=== PATIENT | male | born 1955 | race Caucasian/White ===

== ENCOUNTER 2016-10-27 07:45 | Emergency (ER) | payer BC ==
[~2016-10-27] VITALS: Ht 182.9 cm; Wt 83.0 kg
[~2016-10-27 07:45] MED LIST: AMLO5TAB22 PO; ASPI81TA82 PO; CIAL5TAB PO; LISI-363 PO
[2016-10-27 07:47] VITALS: BP 167/104; PULSE 83; RESP 16; TEMP 98.2; O2SAT 98
[2016-10-27] MEDS ORDERED: LISI-515 PO ×2 (08:05→08:17)
[2016-10-27] MEDS ORDERED: AMLO5TAB2 PO (08:05)
[2016-10-27] MEDS ORDERED: ASPI-110 PO (08:05)
--- NOTE | 2016-10-27 08:14 | PD ---
HPI Chief Complaint: Hypertension Time Seen by Provider: 08:05 Travel History International Travel<30 days: No Contact w/Intl Traveler<30days: No Traveled to known affect area: No History of Present Illness HPI ITS A HOLIDAY WEEKEND, NOTED THAT HE RAN OUT OF HIS LISINOPRIL 20MG DAILY, PATIENT DENIES ANY ACTUAL SYMPTOMS CP/HARMON/SOB/N/V/D/ABD PAIN. PATIENT HAS FOLLOWUP WITH DR QUINONES THIS WEEK [facility] Past Medical History Hx Anticoagulant Therapy: Yes (BABY ASA DAILY) Cancer: Yes (prostrate: radiation & hormone therapy) Cardiovascular Problems: Yes (HTN) Diabetes: No Diminished Hearing: No Hypertension: Yes Immunizations Current: Yes ("shingles shot") Tetanus Vaccination: < 5 Years Influenza Vaccination: No Past Surgical History Genitourinary Surgery: Yes (radical prostrate) Social History Alcohol Use: Yes (beer daily) Tobacco Use: No Substance Use: No Allergies-Medications (Allergen,Severity, Reaction): Coded Allergies: No Known Allergies (Unverified , 10/27/16) Reported Meds & Prescriptions Reported Meds & Active Scripts Active Reported Amlodipine (Amlodipine Besylate) 5 Mg Tab 5 Mg PO BID Aspirin 81 (Aspirin) 81 Mg Tabdr 81 Mg PO DAILY Lisinopril 20 Mg Tab 20 Mg PO DAILY Review of Systems Except as stated in HPI: all other systems reviewed are Neg Physical Exam Narrative GENERAL: SKIN: Warm and dry. HEAD: Atraumatic. Normocephalic. EYES: Pupils equal and round. No scleral icterus. No injection or drainage. ENT: No nasal bleeding or discharge. Mucous membranes pink and moist. NECK: Trachea midline. No JVD. CARDIOVASCULAR: Regular rate and rhythm. RESPIRATORY: No accessory muscle use. Clear to auscultation. Breath sounds equal bilaterally. GASTROINTESTINAL: Abdomen soft, non-tender, nondistended. Hepatic and splenic margins not palpable. MUSCULOSKELETAL: Extremities without clubbing, cyanosis, or edema. No obvious deformities. NEUROLOGICAL: Awake and alert. No obvious cranial nerve deficits. Motor grossly within normal limits. Five out of 5 muscle strength in the arms and legs. Normal speech. PSYCHIATRIC: Appropriate mood and affect; insight and judgment normal. Data Data Last Documented VS Vital Signs Date Time Temp Pulse Resp B/P Pulse Ox O2 Delivery O2 Flow Rate FiO2 10/27/16 08:00 83 16 10/27/16 07:47 98.2 167/104 98 MDM Medical Decision Making Medical Screen Exam Complete: Yes Emergency Medical Condition: Yes Medical Record Reviewed: Yes Differential Diagnosis MED REFILL Narrative Course MED REFILL (HOWEVER, FOUND PT BP 190/105) SO WILL GIVE PO MEDS TO DECREASE BP. WILL PROVIDE MEDS PO AND OBSERVED TO CONTROL BP, IF OBSERVABLE DECREASED THEN OK TO D/C HOME AND ADVISED PATIENT TO FILL HIS TEMPORARY RX AND TAKE MEDICATIONS CARLYN SCHEDULED. Diagnosis Primary Impression: MEDICATION REFILL Additional Impression: UNCONTROLLED HTN (DUE TO OUT OF PRESCRIPTION) Scripts Lisinopril 20 Mg Tab20 Mg PO DAILY #30 TAB Ref 0 Prov:Lazaro Lozano MD 10/27/16 Disposition: 01 DISCHARGE HOME Condition: Stable Lazaro Lozano MD Oct 27, 2016 08:14
[2016-10-27] MEDS ORDERED: LISINOPRIL 10 MG TAB PO ONE (08:15)
[2016-10-27] MEDS ORDERED: cloNIDine HCL 0.2 MG TAB PO ONE (08:15)
[2016-10-27 08:48] VITALS: BP 156/96
== END 2016-10-27 08:55 | disposition home or self-care (01) ==
LOC: PHED 07:45
DX: Z76.0 Encounter for issue of repeat prescription (principal); I10 Essential (primary) hypertension; Z79.82 Long term (current) use of aspirin
CPT/HCPCS: 99283

== ENCOUNTER 2017-04-06 20:34 | Emergency (ER) | payer BC ==
[~2017-04-06] VITALS: Ht 182.9 cm; Wt 86.7 kg
[~2017-04-06 20:34] MED LIST changes: +AMLO5TAB2 PO; -AMLO5TAB22 PO; +ASPI1TAB57 PO; -ASPI81TA82 PO; -CIAL5TAB PO; -LISI-363 PO; +LISI-515 PO
[2017-04-06 20:43] VITALS: BP 205/110; PULSE 106; RESP 18; O2SAT 96
[2017-04-06 20:53] VITALS: O2SAT 97
--- NOTE | 2017-04-06 20:56 | PD ---
HPI Chief Complaint: Chest Pain Time Seen by Provider: 20:40 Travel History International Travel<30 days: No Contact w/Intl Traveler<30days: No Traveled to known affect area: No History of Present Illness HPI 61-year-old male complains of chest pain. Patient states that the pain started this morning when he woke up. Patient states the pain is sharp pain substernal with radiation to the jaw and the ears. Patient states that the pain is worse with deep breathing. Patient denies any coughing congestion fever chills. Patient states that he has intermittent palpitation. Patient denies any diaphoresis. Patient denies any nausea vomiting. Patient denies history of CAD. Patient has history of hypertension. Patient denies any history diabetes or hyperlipidemia. Patient is a nonsmoker. Patient denies family history of heart disease. Patient has history of prostate cancer status post surgery radiation and hormone therapy in the past. On a scale of 1-10 the pain is a 6. PFSH Past Medical History Hx Anticoagulant Therapy: Yes (BABY ASA DAILY) Cancer: Yes (prostrate: radiation & hormone therapy) Cardiovascular Problems: Yes (HTN) Diabetes: No Diminished Hearing: No Hypertension: Yes Immunizations Current: Yes ("shingles shot") Tetanus Vaccination: < 5 Years Influenza Vaccination: No Past Surgical History Genitourinary Surgery: Yes (radical prostrate) Other Surgery: Yes (back sx L4 L5; prostate 2014) Social History Alcohol Use: Yes (4 beers a day ) Tobacco Use: No (23 years ago quit) Substance Use: No Allergies-Medications (Allergen,Severity, Reaction): Coded Allergies: No Known Allergies (Unverified Adverse Reaction, Unknown, 04/06/17) Reported Meds & Prescriptions Reported Meds & Active Scripts Active Reported Amlodipine (Amlodipine Besylate) 5 Mg Tab 5 Mg PO BID Aspirin 81 (Aspirin) 81 Mg Tabdr 81 Mg PO DAILY Lisinopril 20 Mg Tab 20 Mg PO DAILY Review of Systems General / Constitutional: No: Fever Eyes: No: Visual changes HENT: No: Headaches Cardiovascular: Positive: Chest Pain or Discomfort Respiratory: No: Shortness of Breath Gastrointestinal: No: Abdominal Pain Genitourinary: No: Dysuria Musculoskeletal: No: Pain Skin: No Rash Neurologic: No: Weakness Psychiatric: No: Depression Endocrine: No: Polydipsia Hematologic/Lymphatic: No: Easy Bruising Physical Exam Narrative GENERAL: Well-nourished, well-developed patient. SKIN: Focused skin assessment warm/dry. HEAD: Normocephalic. EYES: No scleral icterus. No injection or drainage. NECK: Supple, trachea midline. No JVD or lymphadenopathy. CARDIOVASCULAR: Regular rate and rhythm without murmurs, gallops, or rubs. RESPIRATORY: Breath sounds equal bilaterally. No accessory muscle use. GASTROINTESTINAL: Abdomen soft, non-tender, nondistended. MUSCULOSKELETAL: No cyanosis, or edema. BACK: Nontender without obvious deformity. No CVA tenderness. Neurologic exam normal. Data Data Last Documented VS Vital Signs Date Time Temp Pulse Resp B/P (MAP) Pulse Ox O2 Delivery O2 Flow Rate FiO2 04/06/17 22:41 94 148/91 (110) 04/06/17 21:32 98.2 18 96 Room Air Orders Orders Electrocardiogram (04/06/17 20:49) Complete Blood Count With Diff (04/06/17 20:49) Comprehensive Metabolic Panel (04/06/17 20:49) Creatine Kinase (Cpk) (04/06/17 20:49) Troponin I (04/06/17 20:49) Prothrombin Time / Inr (Pt) (04/06/17 20:49) Act Partial Throm Time (Ptt) (04/06/17 20:49) D-Dimer (04/06/17 20:49) Chest, Single Ap (04/06/17 20:49) Iv Access Insert/Monitor (04/06/17 20:49) Ecg Monitoring (04/06/17 20:49) Oximetry (04/06/17 20:49) Ct Pulmonary Angiogram (04/06/17 20:49) Morphine Inj (Morphine Inj) (04/06/17 21:00) Ondansetron Inj (Zofran Inj) (04/06/17 21:00) Sodium Chlor 0.9% 1000 Ml Inj (Ns 1000 M (04/06/17 21:00) Iohexol 350 Inj (Omnipaque 350 Inj) (04/06/17 21:59) Labetalol Inj (Trandate Inj) (04/06/17 22:15) Labs Laboratory Tests Test 04/06/17 20:40 White Blood Count 7.4 TH/MM3 Red Blood Count 4.59 MIL/MM3 Hemoglobin 14.9 GM/DL Hematocrit 44.1 % Mean Corpuscular Volume 96.2 FL Mean Corpuscular Hemoglobin 32.5 PG Mean Corpuscular Hemoglobin Concent 33.8 % Red Cell Distribution Width 12.6 % Platelet Count 193 TH/MM3 Mean Platelet Volume 8.4 FL Neutrophils (%) (Auto) 81.3 % Lymphocytes (%) (Auto) 8.2 % Monocytes (%) (Auto) 9.2 % Eosinophils (%) (Auto) 0.9 % Basophils (%) (Auto) 0.4 % Neutrophils # (Auto) 6.0 TH/MM3 Lymphocytes # (Auto) 0.6 TH/MM3 Monocytes # (Auto) 0.7 TH/MM3 Eosinophils # (Auto) 0.1 TH/MM3 Basophils # (Auto) 0.0 TH/MM3 CBC Comment DIFF FINAL Differential Comment Prothrombin Time 10.2 SEC Prothromb Time International Ratio 1.0 RATIO Activated Partial Thromboplast Time 26.8 SEC D-Dimer Quantitative (PE/DVT) 0.46 MG/L FEU Blood Urea Nitrogen 9 MG/DL Creatinine 0.70 MG/DL Random Glucose 117 MG/DL Total Protein 8.6 GM/DL Albumin 4.4 GM/DL Calcium Level 8.9 MG/DL Alkaline Phosphatase 72 U/L Aspartate Amino Transf (AST/SGOT) 23 U/L Alanine Aminotransferase (ALT/SGPT) 42 U/L Total Bilirubin 0.6 MG/DL Sodium Level 130 MEQ/L Potassium Level 3.6 MEQ/L Chloride Level 97 MEQ/L Carbon Dioxide Level 24.0 MEQ/L Anion Gap 9 MEQ/L Estimat Glomerular Filtration Rate 114 ML/MIN Total Creatine Kinase 140 U/L Troponin I LESS THAN 0.02 NG/ML MDM Medical Decision Making Medical Screen Exam Complete: Yes Emergency Medical Condition: Yes Interpretation(s) 21:38 PM. CBC within normal limit. Sodium 130. Cardiac enzymes are normal. D -dimer is normal. 22:46 PM. Last Impressions Chest X-Ray 04/06/172048 Signed Impressions: Service Date/Time: Thursday, April 06, 2017 21:19 - CONCLUSION: No acute disease. En Balderas MD CT Angiography 04/06/172048 Signed Impressions: Service Date/Time: Thursday, April 06, 2017 21:41 - CONCLUSION: 1. Negative for pulmonary embolism. Dependent atelectasis in the lungs. Mild fatty liver. En Balderas MD Differential Diagnosis Differential diagnosis including pleurisy, angina, MA, PE, pneumothorax. Narrative Course 61-year-old male with substernal chest pain, sharp pain and worse with deep inspiration. Patient has mild tachycardia and elevated blood pressure. Labetalol 10 mg IV given. Blood pressure came under control. Diagnosis Primary Impression: Atypical chest pain Additional Impression: Uncontrolled hypertension Patient Instructions: General Instructions Additional Instructions: Mobic as needed for pain. Follow-up with personal physician. Return immediately if increasing chest pain shortness of breath. Increased amlodipine to 10 mg daily if persistent elevated blood pressure. Med/Other Pt SpecificInfo: Prescription(s) given Scripts Meloxicam (Mobic) 15 Mg Tab 15 MG PO DAILY for Pain, #14 TAB 0 Refills Prov: Shashank Canales MD 04/06/17 Disposition: 01 DISCHARGE HOME Condition: Stable Shashank Canales MD Apr 06, 2017 20:56
[2017-04-06] MEDS ORDERED: SODIUM CHLOR 0.9% 1000 ML INJ 1,000 ML IV ONE (21:00)
[2017-04-06] MEDS ORDERED: MORPHINE SULFATE 2 MG/ML INJ IV PUSH ONE (21:00)
[2017-04-06] MEDS ORDERED: ONDANSETRON HCL 4 MG/2 ML VIAL IV PUSH ONE (21:00)
[2017-04-06 21:14] LABS: CHLORIDE 97 MEQ/L (98-107); POTASSIUM 3.6 MEQ/L (3.5-5.1); SODIUM (NA) 130 MEQ/L (136-145)
[2017-04-06 21:18] LABS: ANION GAP 9 MEQ/L (5-15); BLOOD UREA NITROGEN 9 MG/DL (7-18)
[2017-04-06 21:21] LABS: ALT (GPT) 42 U/L (12-78); AST (GOT) 23 U/L (15-37); GLOMERULAR FILTRATION RATE 114 ML/MIN (>89)
[2017-04-06 21:22] LABS: TOTAL BILIRUBIN ADULT 0.6 MG/DL (0.2-1.0)
[2017-04-06 21:24] LABS: ALKALINE PHOSPHATASE 72 U/L (45-117); CREATINE KINASE 140 U/L (39-308)
[2017-04-06 21:30] LABS: APTT (PATIENT) 26.8 SEC (24.3-30.1); PROTHROMBIN TIME - PATIENT 10.2 SEC (9.8-11.6)
[2017-04-06 21:32] VITALS: BP 168/96; PULSE 96; RESP 18; TEMP 98.2; O2SAT 96
[2017-04-06 21:36] LABS: BASOPHIL % 0.4 % (0.0-2.0); EOSINOPHIL # 0.1 TH/MM3 (0-0.4); EOSINOPHIL % 0.9 % (0.0-4.0); HEMATOCRIT 44.1 % (39.0-51.0); HEMO FLAGS DIFF FINAL; LYMPH % 8.2 % (9.0-44.0); LYMPHOCYTE # 0.6 TH/MM3 (1.0-4.8); MEAN CELL VOLUME 96.2 FL (80.0-100.0); MEAN CORPUSCULAR HEMOGLOBIN 32.5 PG (27.0-34.0); MEAN CORPUSCULAR HGB CONC 33.8 % (32.0-36.0); MONO % 9.2 % (0.0-8.0); NEUT % 81.3 % (16.0-70.0); PLATELET COUNT 193 TH/MM3 (150-450); RED BLOOD COUNT 4.59 MIL/MM3 (4.50-5.90); RED CELL DISTRIBUTION WIDTH 12.6 % (11.6-17.2); WHITE BLOOD COUNT 7.4 TH/MM3 (4.0-11.0)
--- NOTE | 2017-04-06 21:52 | RADRPT ---
EXAM DATE/TIME: 04/06/2017 21:19 [facility] COMPARISON: No previous studies available for comparison. INDICATIONS : Substernal chest pain. MEDICAL HISTORY : Hypertension. SURGICAL HISTORY : None. ENCOUNTER: Initial ACUITY: 1 day PAIN SCORE: 6/10 LOCATION: chest substernal. FINDINGS: A single view of the chest demonstrates the lungs to be symmetrically aerated without evidence of mas s, infiltrate or effusion. The cardiomediastinal contours are unremarkable. Osseous structures are intact. CONCLUSION: No acute disease. En Balderas MD on April 06, 2017 at 21:50 Board Certified Radiologist. This report was verified electronically.
[2017-04-06] MEDS ORDERED: IOHEXOL 350 MG/ML 10 ML VIAL (for RAD DIAG) IVCONTRAST ONE (21:59)
--- NOTE | 2017-04-06 22:07 | RADRPT ---
EXAM DATE/TIME: 04/06/2017 21:41 [facility] COMPARISON: No previous studies available for comparison. INDICATIONS : Mid chest pain. Evaluate for embolism. IV CONTRAST: 75 cc Omnipaque 350 (iohexol) IV RADIATION DOSE: 15.18 CTDIvol (mGy) MEDICAL HISTORY : Hypertension. Carcinoma, prostate. SURGICAL HISTORY : Prostatectomy. ENCOUNTER: Initial ACUITY: 1 day PAIN SCALE: 6/10 LOCATION: upper chest midline TECHNIQUE: Volumetric scanning of the chest was performed using a pulmonary embolism protocol MIP images were re constructed. Using automated exposure control and adjustment of the mA and/or kV according to patien t size, radiation dose was kept as low as reasonably achievable to obtain optimal diagnostic quality images. DICOM format image data is available electronically for review and comparison. Follow-up recommendations for detected pulmonary nodules are based at a minimum on nodule size and pa tient risk factors according to Fleischner Society Guidelines. FINDINGS: There are no filling defects identified to suggest pulmonary embolus. No hilar, mediastinal axillary adenopathy. Moderate coronary calcifications. Mild dependent atelectasis in the lungs. No pleural or pericardial effusion. No acute findings in the upper abdomen. Fatty liver. CONCLUSION: 1. Negative for pulmonary embolism. Dependent atelectasis in the lungs. Mild fatty liver. En Balderas MD on April 06, 2017 at 22:03 Board Certified Radiologist. This report was verified electronically.
[2017-04-06] MEDS ORDERED: LABETALOL HCL 100 MG/20 ML VIAL IV PUSH ONE (22:15)
[2017-04-06 22:41] VITALS: BP 148/91; PULSE 94
[2017-04-06] MEDS ORDERED: MOBI15TA PO (22:53)
[2017-04-06 23:05] VITALS: BP 144/84; PULSE 92; RESP 18; O2SAT 97
--- NOTE | 2017-04-07 11:38 | EKG ---
Date Performed: 04/06/2017 Time Performed: 20:41:21 PTAGE: 61 years EKG: SINUS TACHYCARDIA ABNORMAL RHYTHM ECG NO PREVIOUS TRACING DOCTOR: Mraek Patel Interpretating Date/Time 04/07/2017 11:36:54
== END 2017-04-06 23:15 | disposition home or self-care (01) ==
LOC: PHED 20:34
DX: R07.89 Other chest pain (principal); I10 Essential (primary) hypertension; Z85.46 Personal history of malignant neoplasm of prostate; Z87.891 Personal history of nicotine dependence
CPT/HCPCS: 71010; 71275; 80053; 82550; 84484; 85025; 85379; 85610; 85730; 93005; 96361; 96374; 96375; 99285; J2270; J2405; J7030; Q9967

== ENCOUNTER 2017-07-05 20:40 | Observation (INO) | payer BC ==
[~2017-07-05] VITALS: Ht 208.3 cm; Wt 83.6 kg
[~2017-07-05 20:40] MED LIST changes: +MOBI15TA PO
[2017-07-05 20:48] VITALS: BP 189/106; PULSE 112; RESP 24; TEMP 98.8; O2SAT 99
--- NOTE | 2017-07-05 21:25 | PD ---
HPI Chief Complaint: Complaint Time Seen by Provider: 21:15 Travel History International Travel<30 days: No Contact w/Intl Traveler<30days: No Traveled to known affect area: No History of Present Illness HPI 61-year-old male patient with history of prostate cancer, with history of radiation, complicated by radiation related cystitis, here because of blood in the urine and passing blood clots, then had difficulty urinating since 3 PM. He states that he is having a lot of lower abdominal discomfort and fullness. He states he could not pass his urine at this point and states that he has had difficulty all day with passing clots. He had talked his primary care physician and was told to come into the hospital for further treatment. Modifying Factors: None Associated Signs & Symptoms: Blood in the urine, passing blood clots in the urine, inability to urinate Risk Factors: Radiation cystitis history PFSH Past Medical History Hx Anticoagulant Therapy: Yes (BABY ASA DAILY) Cancer: Yes (prostrate: radiation & hormone therapy) Cardiovascular Problems: Yes (HTN) Diabetes: No Diminished Hearing: No Hypertension: Yes Immunizations Current: Yes ("shingles shot") Past Surgical History Genitourinary Surgery: Yes (radical prostrate) Other Surgery: Yes (back sx L4 L5; prostate 2014) Social History Alcohol Use: Yes (4 beers a day ) Tobacco Use: No (23 years ago quit) Substance Use: No Allergies-Medications (Allergen,Severity, Reaction): Coded Allergies: No Known Allergies (Unverified Adverse Reaction, Unknown, 07/05/17) Reported Meds & Prescriptions Reported Meds & Active Scripts Active Mobic (Meloxicam) 15 Mg Tab 15 Mg PO DAILY Reported Amlodipine (Amlodipine Besylate) 5 Mg Tab 5 Mg PO BID Aspirin 81 (Aspirin) 81 Mg Tabdr 81 Mg PO DAILY Lisinopril 20 Mg Tab 20 Mg PO DAILY Review of Systems Except as stated in HPI: all other systems reviewed are Neg Physical Exam Narrative GENERAL: Well-developed elderly male patient currently in mild distress. Awake and oriented 3. SKIN: Focused skin assessment warm/dry. HEAD: Atraumatic. Normocephalic. EYES: Pupils equal and round. No scleral icterus. No injection or drainage. ENT: No nasal bleeding or discharge. Mucous membranes pink and moist. NECK: Trachea midline. No JVD. CARDIOVASCULAR: Regular rate and rhythm. No murmur appreciated. RESPIRATORY: No accessory muscle use. Clear to auscultation. Breath sounds equal bilaterally. GASTROINTESTINAL: Abdomen soft, palpable bladder in the lower abdomen, mildly tender to palpation. Hepatic and splenic margins not palpable. MUSCULOSKELETAL: No obvious deformities. No clubbing. No cyanosis. No edema. NEUROLOGICAL: Awake and alert. No obvious cranial nerve deficits. Motor grossly within normal limits. Normal speech. PSYCHIATRIC: Appropriate mood and affect; insight and judgment normal. Data Data Last Documented VS Vital Signs Date Time Temp Pulse Resp B/P (MAP) Pulse Ox O2 Delivery O2 Flow Rate FiO2 07/05/17 23:33 75 18 175/88 (117) 97 Room Air 07/05/17 20:48 98.8 Orders Orders Urinary Catheter Insert/Apply (07/05/17 21:15) Bladder/Catheter Irrigation (07/05/17 21:15) Complete Blood Count With Diff (07/05/17 21:22) Prothrombin Time / Inr (Pt) (07/05/17 21:22) Act Partial Throm Time (Ptt) (07/05/17 21:22) Urinalysis - C+S If Indicated (07/05/17 21:22) Type And Screen (07/05/17 21:22) Consult Urology (07/06/17 ) Admit Order (Ed Use Only) (07/06/17 00:52) Labs Laboratory Tests Test 07/05/17 21:55 White Blood Count 5.4 TH/MM3 Red Blood Count 4.26 MIL/MM3 Hemoglobin 13.8 GM/DL Hematocrit 39.9 % Mean Corpuscular Volume 93.6 FL Mean Corpuscular Hemoglobin 32.3 PG Mean Corpuscular Hemoglobin Concent 34.5 % Red Cell Distribution Width 12.7 % Platelet Count 168 TH/MM3 Mean Platelet Volume 8.1 FL Neutrophils (%) (Auto) 82.6 % Lymphocytes (%) (Auto) 7.8 % Monocytes (%) (Auto) 8.8 % Eosinophils (%) (Auto) 0.7 % Basophils (%) (Auto) 0.1 % Neutrophils # (Auto) 4.5 TH/MM3 Lymphocytes # (Auto) 0.4 TH/MM3 Monocytes # (Auto) 0.5 TH/MM3 Eosinophils # (Auto) 0.0 TH/MM3 Basophils # (Auto) 0.0 TH/MM3 CBC Comment DIFF FINAL Differential Comment Prothrombin Time 10.4 SEC Prothromb Time International Ratio 1.0 RATIO Activated Partial Thromboplast Time 25.2 SEC Urine Collection Type CLEAN CATCH Urine Color RED Urine Turbidity TURBID Urine pH 6.5 Urine Specific Boomer 1.015 Urine Protein 100 mg/dL Urine Glucose (UA) 100 mg/dL Urine Ketones NEG mg/dL Urine Occult Blood MOD Urine Nitrite NEG Urine Bilirubin NEG Urine Urobilinogen 0.2 MG/DL Urine Leukocyte Esterase NEG Urine RBC INNUM /hpf Urine Squamous Epithelial Cells 0-5 /hpf Microscopic Urinalysis Comment CULT NOT INDICATED MDM Medical Decision Making Medical Screen Exam Complete: Yes Emergency Medical Condition: Yes Medical Record Reviewed: Yes Interpretation(s) Laboratory Tests Test 07/05/17 21:55 Red Blood Count 4.26 MIL/MM3 (4.50-5.90) Neutrophils (%) (Auto) 82.6 % (16.0-70.0) Lymphocytes (%) (Auto) 7.8 % (9.0-44.0) Monocytes (%) (Auto) 8.8 % (0.0-8.0) Lymphocytes # (Auto) 0.4 TH/MM3 (1.0-4.8) Urine Color RED (YELLW/STRAW) Urine Protein 100 mg/dL (NEG-TRACE) Urine Glucose (UA) 100 mg/dL (NEG) Urine Occult Blood MOD (NEG) Urine RBC INNUM /hpf (0-3) Differential Diagnosis Hemorrhagic cystitis/urinary outflow obstruction Narrative Course Bladder irrigation was started on the patient and it seems to clear with irrigation. However, the bleeding continues when the irrigation is stopped. Vital signs are stable. H&H stable. The case was discussed with urologist on- call, Dr. Smith, and he would like the patient to be admitted as an observation. Case is discussed with Dr. Blank for admission. Diagnosis Primary Impression: Radiation cystitis Additional Impression: Hematuria Admitting Information Admitting Physician Requests: Admit Christine Jimenez MD Jul 05, 2017 21:25
[2017-07-05 22:14] LABS: AUTOMATED NEUTROPHIL # 4.5 TH/MM3 (1.8-7.7); BASOPHIL % 0.1 % (0.0-2.0); EOSINOPHIL % 0.7 % (0.0-4.0); HEMATOCRIT 39.9 % (39.0-51.0); HEMOGLOBIN 13.8 GM/DL (13.0-17.0); LYMPH % 7.8 % (9.0-44.0); LYMPHOCYTE # 0.4 TH/MM3 (1.0-4.8); MEAN CELL VOLUME 93.6 FL (80.0-100.0); MEAN CORPUSCULAR HEMOGLOBIN 32.3 PG (27.0-34.0); MEAN CORPUSCULAR HGB CONC 34.5 % (32.0-36.0); MEAN PLATELET VOLUME 8.1 FL (7.0-11.0); MONO % 8.8 % (0.0-8.0); MONOCYTE # 0.5 TH/MM3 (0-0.9); NEUT % 82.6 % (16.0-70.0); PLATELET COUNT 168 TH/MM3 (150-450); RED BLOOD COUNT 4.26 MIL/MM3 (4.50-5.90); RED CELL DISTRIBUTION WIDTH 12.7 % (11.6-17.2); WHITE BLOOD COUNT 5.4 TH/MM3 (4.0-11.0)
[2017-07-05 22:27] LABS: PROTHROMBIN TIME - PATIENT 10.4 SEC (9.8-11.6)
[2017-07-05 22:35] LABS: BILIRUBIN, URINE NEG (NEG); BLOOD, URINE MOD (NEG); GLUCOSE,URINE 100 mg/dL (NEG); KETONE, URINE NEG (NEG); NITRITE,URINE NEG (NEG); PH, URINE 6.5 (5.0-8.5); URINE LEUKOCYTE ESTERASE NEG (NEG)
[2017-07-05 22:36] LABS: URINE COLOR RED (YELLW/STRAW)
[2017-07-05 22:41] LABS: RBC, URINE INNUM /hpf (0-3); SQUAMOUS EPITHELIAL CELL URINE 0-5 /hpf (0-5)
[2017-07-05 23:33] VITALS: BP 175/88; PULSE 75; RESP 18; O2SAT 97
[2017-07-06] VITALS (7 sets, daily range): BP systolic 124–175; BP diastolic 78–97; PULSE 77–90; RESP 14–18; TEMP 97.5–98.1; O2SAT 96–97
[2017-07-06] MEDS ORDERED: ONDANSETRON HCL 4 MG/2 ML VIAL IVP PRN (01:00)
[2017-07-06] MEDS ORDERED: NALOXONE HCL 0.4 MG/ML AMP IV PUSH PRN (01:00)
[2017-07-06] MEDS ORDERED: SODIUM CHLORIDE 0.9% FLUSH 10 ML FLUSH IV FLUSH PRN (01:00)
[2017-07-06] MEDS: SODIUM CHLOR 0.9% 1000 ML INJ 1,000 ML IV SCH ×3 (03:20→20:43)
[2017-07-06] MEDS ORDERED: LORazepam 1 MG TAB PO PRN (03:30)
[2017-07-06] MEDS ORDERED: HALOPERIDOL LACTATE 5 MG/ML AMP IM PRN (03:30)
[2017-07-06] MEDS ORDERED: LORazepam 2 MG/ML VIAL IV PUSH PRN ×4 (03:30)
[2017-07-06] MEDS ORDERED: FLUMAZENIL 0.5 MG/5 ML VIAL IV PUSH PRN (03:30)
[2017-07-06] MEDS ORDERED: LORazepam 2 MG TAB PO PRN (03:30)
[2017-07-06 08:26] LABS: AUTOMATED NEUTROPHIL # 3.7 TH/MM3 (1.8-7.7); BASOPHIL % 0.3 % (0.0-2.0); EOSINOPHIL # 0.1 TH/MM3 (0-0.4); EOSINOPHIL % 1.2 % (0.0-4.0); HEMATOCRIT 38.3 % (39.0-51.0); HEMOGLOBIN 13.4 GM/DL (13.0-17.0); LYMPH % 11.3 % (9.0-44.0); LYMPHOCYTE # 0.5 TH/MM3 (1.0-4.8); MEAN CELL VOLUME 94.4 FL (80.0-100.0); MEAN PLATELET VOLUME 8.2 FL (7.0-11.0); MONO % 10.1 % (0.0-8.0); MONOCYTE # 0.5 TH/MM3 (0-0.9); NEUT % 77.1 % (16.0-70.0); PLATELET COUNT 181 TH/MM3 (150-450); RED BLOOD COUNT 4.06 MIL/MM3 (4.50-5.90); RED CELL DISTRIBUTION WIDTH 12.6 % (11.6-17.2); WHITE BLOOD COUNT 4.8 TH/MM3 (4.0-11.0)
[2017-07-06 08:50] LABS: CALCIUM 8.5 MG/DL (8.5-10.1)
[2017-07-06 08:51] LABS: BICARBONATE 25.3 MEQ/L (21.0-32.0)
[2017-07-06 08:54] LABS: CREATININE 0.66 MG/DL (0.60-1.30)
[2017-07-06] MEDS: SODIUM CHLORIDE 0.9% FLUSH 10 ML FLUSH IV FLUSH SCH ×2 (09:00→20:43)
[2017-07-06] MEDS: LISINOPRIL 20 MG TAB PO SCH (09:43)
[2017-07-06] MEDS: amLODIPine BESYLATE 5 MG TAB PO SCH ×2 (09:43→20:42)
--- NOTE | 2017-07-06 10:30 | HHI.HP ---
[facility] Renuka [facility] M.D. Admission Diagnosis Hematuria/hemorrhagic cystitis/bladder irrigation Diagnoses: Chief Complaint: Blood in urine Travel History International Travel<30 Days: No Contact w/Intl Traveler <30 Da: No Traveled to Known Affected Are: No History of Present Illness The patient is a 67-year-old male with a past medical history of prostate cancer who is presenting to the hospital with blood in his urine. He states that yesterday morning he developed difficulty with urinating. He then passed some blood clots. Later on in the day he passed very large blood clots. He called the doctor's office who recommended he come to the hospital. The patient says he gets blood clots every once in a while but usually it passes on its own. He says he is prone to blood clots secondary to radiation treatment he received on his prostate. The last blood clot he noticed was a few months ago. He has not been following up with a urologist regularly. He denies any recent trauma or infection. He did start taking cranberry supplements a few months ago. He denies a history of kidney stones. Review of Systems Except as stated in HPI: all other systems reviewed are Neg Past Family Social History Past Medical History Prostate cancer Hypertension Past Surgical History Prostate surgery Allergies: Coded Allergies: No Known Allergies (Unverified Adverse Reaction, Unknown, 07/05/17) Active Ordered Medications Current Medications Medications (Trade) Dose Ordered Sig/Guicho Route Start Time Stop Time Status Last Admin Sodium Chloride 1,000 ml @ 100 mls/hr Q10H IV 07/06/17 00:55 07/06/17 09:42 (NS Flush) 2 ml UNSCH PRN IV FLUSH 07/06/17 01:00 07/06/17 03:22 (NS Flush) 2 ml BID IV FLUSH 07/06/17 09:00 (Zofran Inj) 4 mg Q6H PRN IVP 07/06/17 01:00 (Narcan Inj) 0.4 mg UNSCH PRN IV PUSH 07/06/17 01:00 (Ativan) 1 mg Q4H PRN PO 07/06/17 03:30 (Ativan Inj) 1 mg Q4H PRN IV PUSH 07/06/17 03:30 (Ativan) 2 mg Q2H PRN PO 07/06/17 03:30 (Ativan Inj) 2 mg Q2H PRN IV PUSH 07/06/17 03:30 (Ativan Inj) 2 mg Q1H PRN IV PUSH 07/06/17 03:30 (Ativan Inj) 2 mg Q15M PRN IV PUSH 07/06/17 03:30 (Haldol Inj) 2 mg Q15M PRN IM 07/06/17 03:30 (Romazicon Inj) 0.2 mg Q1M PRN IV PUSH 07/06/17 03:30 (Norvasc) 5 mg BID PO 07/06/17 09:00 07/06/17 09:43 (Prinivil) 20 mg DAILY PO 07/06/17 09:00 07/06/17 09:43 Family History Hypertension Social History The patient does not smoke. He drinks four beers daily. Physical Exam Vital Signs Vital Signs Date Time Temp Pulse Resp B/P (MAP) Pulse Ox O2 Delivery O2 Flow Rate FiO2 07/06/17 08:00 97.8 80 14 151/86 (107) 97 07/06/17 04:00 97.5 81 16 150/86 (107) 97 07/06/17 03:05 97.7 83 16 151/89 (109) 96 07/06/17 02:49 07/06/17 01:35 87 18 175/97 (123) 97 Room Air 07/05/17 23:33 75 18 175/88 (117) 97 Room Air 07/05/17 20:48 98.8 112 24 189/106 (133) 99 Physical Exam GENERAL: This is a well-nourished, well-developed patient, in no apparent distress. SKIN: No rashes, ecchymoses or lesions. Cool and dry. HEAD: Atraumatic. Normocephalic. No temporal or scalp tenderness. EYES: Pupils equal round and reactive. Extraocular motions intact. No scleral icterus. No injection or drainage. ENT: Nose without bleeding, purulent drainage or septal hematoma. Throat without erythema, tonsillar hypertrophy or exudate. Uvula midline. Airway patent. NECK: Trachea midline. No JVD or lymphadenopathy. Supple, nontender, no meningeal signs. CARDIOVASCULAR: Regular rate and rhythm without murmurs, gallops, or rubs. RESPIRATORY: Clear to auscultation. Breath sounds equal bilaterally. No wheezes , rales, or rhonchi. GASTROINTESTINAL: Abdomen soft, non-tender, nondistended. No hepato-splenomegaly , or palpable masses. No guarding. : Curiel in place with red urine. No blood at the meatus. MUSCULOSKELETAL: Extremities without clubbing, cyanosis, or edema. No joint tenderness, effusion, or edema noted. No CVA tenderness. NEUROLOGICAL: Awake and alert. Cranial nerves II through XII intact. Motor and sensory grossly within normal limits. Five out of 5 muscle strength in all muscle groups. Normal speech. PSYCH: Mood and affect appropriate. Laboratory Laboratory Tests Test 07/05/17 21:55 07/06/17 07:50 White Blood Count 5.4 4.8 Red Blood Count 4.26 4.06 Hemoglobin 13.8 13.4 Hematocrit 39.9 38.3 Mean Corpuscular Volume 93.6 94.4 Mean Corpuscular Hemoglobin 32.3 33.0 Mean Corpuscular Hemoglobin Concent 34.5 35.0 Red Cell Distribution Width 12.7 12.6 Platelet Count 168 181 Mean Platelet Volume 8.1 8.2 Neutrophils (%) (Auto) 82.6 77.1 Lymphocytes (%) (Auto) 7.8 11.3 Monocytes (%) (Auto) 8.8 10.1 Eosinophils (%) (Auto) 0.7 1.2 Basophils (%) (Auto) 0.1 0.3 Neutrophils # (Auto) 4.5 3.7 Lymphocytes # (Auto) 0.4 0.5 Monocytes # (Auto) 0.5 0.5 Eosinophils # (Auto) 0.0 0.1 Basophils # (Auto) 0.0 0.0 CBC Comment DIFF FINAL DIFF FINAL Differential Comment Prothrombin Time 10.4 Prothromb Time International Ratio 1.0 Activated Partial Thromboplast Time 25.2 Urine Collection Type CLEAN CATCH Urine Color RED Urine Turbidity TURBID Urine pH 6.5 Urine Specific [place] 1.015 Urine Protein 100 Urine Glucose (UA) 100 Urine Ketones NEG Urine Occult Blood MOD Urine Nitrite NEG Urine Bilirubin NEG Urine Urobilinogen 0.2 Urine Leukocyte Esterase NEG Urine RBC INNUM Urine Squamous Epithelial Cells 0-5 Microscopic Urinalysis Comment CULT NOT INDICATED Blood Urea Nitrogen 7 Creatinine 0.66 Random Glucose 105 Calcium Level 8.5 Sodium Level 137 Potassium Level 4.0 Chloride Level 104 Carbon Dioxide Level 25.3 Anion Gap 8 Estimat Glomerular Filtration Rate 122 Result Diagram: 07/06/17 0750 07/06/17 0750 Caprini VTE Risk Assessment Caprini VTE Risk Assessment: Mod/High Risk (score >= 2) Caprini Risk Assessment Model Point Value = 1 Point Value = 2 Point Value = 3 Point Value = 5 Age 41-60 Minor surgery BMI > 25 kg/m2 Swollen legs Varicose veins or History of unexplained or recurrent spontaneous Oral contraceptives or hormone replacement Sepsis (< 1 month) Serious lung disease, including pneumonia (< 1 month) Abnormal pulmonary function Acute myocardial infarction Congestive heart failure (< 1 month) History of inflammatory bowel disease Medical patient at bed rest Age 61-74 Arthroscopic surgery Major open surgery (> 45 min) Laparoscopic surgery (> 45 min) Malignancy Confined to bed (> 72 hours) Immobilizing plaster cast Central venous access Age >= 75 History of VTE Family history of VTE Factor V Leiden Prothrombin [id number] Lupus anticoagulant Anticardiolipin antibodies Elevated serum homocysteine Heparin-induced thrombocytopenia Other congenital or acquired thrombophilia Stroke (< 1 month) Elective arthroplasty Hip, pelvis, or leg fracture Acute spinal cord injury (< 1 month) Prophylaxis Regimen Total Risk Factor Score Risk Level Prophylaxis Regimen 0-1 Low Early ambulation 2 Moderate Order ONE of the following: *Sequential Compression Device (SCD) *Heparin 5000 units SQ BID 3-4 Higher Order ONE of the following medications: *Heparin 5000 units SQ TID *Enoxaparin/Lovenox 40 mg SQ daily (WT < 150 kg, CrCl > 30 mL/min) *Enoxaparin/Lovenox 30 mg SQ daily (WT < 150 kg, CrCl > 10-29 mL/min) *Enoxaparin/Lovenox 30 mg SQ BID (WT < 150 kg, CrCl > 30 mL/min) AND/OR *Sequential Compression Device (SCD) 5 or more Highest Order ONE of the following medications: *Heparin 5000 units SQ TID (Preferred with Epidurals) *Enoxaparin/Lovenox 40 mg SQ daily (WT < 150 kg, CrCl > 30 mL/min) *Enoxaparin/Lovenox 30 mg SQ daily (WT < 150 kg, CrCl > 10-29 mL/min) *Enoxaparin/Lovenox 30 mg SQ BID (WT < 150 kg, CrCl > 30 mL/min) AND *Sequential Compression Device (SCD) Assessment and Plan Assessment and Plan Hematuria The patient has a history of prostate cancer status post radiation and surgery. He says he is prone to clots every once in a while. Currently on continuous bladder irrigation. - Continue CBI. - Urology consult pending. - Follow CBC and transfuse as needed. - Hold aspirin. Not critical to continue at the time of discharge. Alcohol abuse The patient makes his own beer. He says he drinks up to 4 beers daily. - Encouraged patient to cut down on consumption. - CIWA protocol. HTN Blood pressure has been elevated. - resume home meds. - clonidine as needed. Glucosuria/ proteinuria Noted on UA. - check a hgbA1c. PPx: SCDs Discussed Condition With Patient, pt's family, nursing Paul Ramos DO Jul 06, 2017 10:30
[2017-07-06] MEDS ORDERED: cloNIDine HCL 0.1 MG TAB PO PRN (11:00)
--- NOTE | 2017-07-06 15:57 | PD.CONS ---
HPI Service Urology Consult Requested By Dr Paul Ramos Reason for Consult Hematuria / clot retention Primary Care Physician Renuka Collins M.D. 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 he has h/o Prostate cancer, diagnosed 4 y/a at another state and treated with robotic prostatectomy, XRT and ADT. As per pt Hayden score was 9. He states that started seeing some mild hematuria and small clots 6mo after radiation, on/off but he had never had retention and as much clots as now. He does admit incontinence post/op and doing Kegel exercise/timed voiding and wearing clamp at work, states its getting better but slowly. He did see Dr Oseguera about 6mo/a for incontinence issue. no other c/o/ . no pain, no f/c/n/v. labs are stable. He is currently with freeman catheter 16Fr [address] and on CBI and urine color is pink Review of Systems Except as stated in HPI: all other systems reviewed are Neg Past Family Social History Past Medical History Prostate cancer Hypertension Past Surgical History Robotic Prostate surgery Allergies: Coded Allergies: No Known Allergies (Unverified Adverse Reaction, Unknown, 07/05/17) Family History fam hx of HTN Social History The patient does not smoke. He drinks four beers daily. Physical Exam Vital Signs Date Time Temp Pulse Resp B/P (MAP) Pulse Ox O2 Delivery O2 Flow Rate FiO2 07/06/17 12:00 97.5 77 14 134/78 (96) 96 07/06/17 08:00 97.8 80 14 151/86 (107) 97 07/06/17 04:00 97.5 81 16 150/86 (107) 97 07/06/17 03:05 97.7 83 16 151/89 (109) 96 07/06/17 02:49 07/06/17 01:35 87 18 175/97 (123) 97 Room Air 07/05/17 23:33 75 18 175/88 (117) 97 Room Air 07/05/17 20:48 98.8 112 24 189/106 (133) 99 Physical Exam GENERAL: This is a well-nourished, well-developed patient, in no apparent distress. EYES: Pupils equal round and reactive. NECK: Supple CARDIOVASCULAR: Regular rate and rhythm without murmurs RESPIRATORY: Clear to auscultation. Breath sounds equal bilaterally. No wheezes , rales, or rhonchi. GASTROINTESTINAL: Abdomen soft, non-tender, nondistended. GENITOURINARY: 3way freeman is in place, normal genital exam MUSCULOSKELETAL: Extremities without clubbing, cyanosis, or edema.. NEUROLOGICAL: Awake and alert. Lab results reviewed: Yes Laboratory Tests Test 07/05/17 21:55 07/06/17 07:50 White Blood Count 5.4 4.8 Red Blood Count 4.26 4.06 Hemoglobin 13.8 13.4 Hematocrit 39.9 38.3 Mean Corpuscular Volume 93.6 94.4 Mean Corpuscular Hemoglobin 32.3 33.0 Mean Corpuscular Hemoglobin Concent 34.5 35.0 Red Cell Distribution Width 12.7 12.6 Platelet Count 168 181 Mean Platelet Volume 8.1 8.2 Neutrophils (%) (Auto) 82.6 77.1 Lymphocytes (%) (Auto) 7.8 11.3 Monocytes (%) (Auto) 8.8 10.1 Eosinophils (%) (Auto) 0.7 1.2 Basophils (%) (Auto) 0.1 0.3 Neutrophils # (Auto) 4.5 3.7 Lymphocytes # (Auto) 0.4 0.5 Monocytes # (Auto) 0.5 0.5 Eosinophils # (Auto) 0.0 0.1 Basophils # (Auto) 0.0 0.0 CBC Comment DIFF FINAL DIFF FINAL Differential Comment Prothrombin Time 10.4 Prothromb Time International Ratio 1.0 Activated Partial Thromboplast Time 25.2 Urine Collection Type CLEAN CATCH Urine Color RED Urine Turbidity TURBID Urine pH 6.5 Urine Specific [place] 1.015 Urine Protein 100 Urine Glucose (UA) 100 Urine Ketones NEG Urine Occult Blood MOD Urine Nitrite NEG Urine Bilirubin NEG Urine Urobilinogen 0.2 Urine Leukocyte Esterase NEG Urine RBC INNUM Urine Squamous Epithelial Cells 0-5 Microscopic Urinalysis Comment CULT NOT INDICATED Blood Urea Nitrogen 7 Creatinine 0.66 Random Glucose 105 Calcium Level 8.5 Sodium Level 137 Potassium Level 4.0 Chloride Level 104 Carbon Dioxide Level 25.3 Anion Gap 8 Estimat Glomerular Filtration Rate 122 Result Diagram: 07/06/17 0750 07/06/17 0750 Assessment and Plan Assessment and Plan 61y.o M with h/o Wendy 9 prostate cancer, s/p robotic prostatectomy, ADT and XRT Currently admitted for radiation cystitis and clot retention Plan: - No acute intervention needed - Continue treatment as per primary team. d/c NPO order - Keep fremean cath and CBI running for another night, then clamp CBI at AM and observe urine color, If pt remains stable he can be d/c home on antbx and see DR Oseguera as an outpt for voiding trial. he may need hyperbaric chamber treatment to be planned for him in the future to manage radiation cystitis hematuria. Urology remains available as needed. Discussed Condition With Dr Luis AGUILAR attending who agrees with this plan Aristides Hope Jul 06, 2017 15:57
[2017-07-07] VITALS: BP 122/72; PULSE 74; RESP 16; TEMP 98.1; O2SAT 96
[2017-07-07] MEDS: SODIUM CHLOR 0.9% 1000 ML INJ 1,000 ML IV SCH (06:15)
[2017-07-07 08:52] VITALS: BP 139/79; PULSE 69; RESP 18; TEMP 97.7; O2SAT 96
[2017-07-07] MEDS: amLODIPine BESYLATE 5 MG TAB PO SCH (09:25)
[2017-07-07] MEDS: SODIUM CHLORIDE 0.9% FLUSH 10 ML FLUSH IV FLUSH SCH (09:25)
[2017-07-07] MEDS: LISINOPRIL 20 MG TAB PO SCH (09:25)
[2017-07-07 10:07] LABS: HEMATOCRIT 36.5 % (39.0-51.0); HEMOGLOBIN 12.3 GM/DL (13.0-17.0); MEAN CELL VOLUME 95.2 FL (80.0-100.0); MEAN CORPUSCULAR HEMOGLOBIN 32.2 PG (27.0-34.0); MEAN CORPUSCULAR HGB CONC 33.8 % (32.0-36.0); MEAN PLATELET VOLUME 8.4 FL (7.0-11.0); PLATELET COUNT 144 TH/MM3 (150-450); RED BLOOD COUNT 3.83 MIL/MM3 (4.50-5.90); RED CELL DISTRIBUTION WIDTH 12.7 % (11.6-17.2); WHITE BLOOD COUNT 4.2 TH/MM3 (4.0-11.0)
--- NOTE | 2017-07-07 13:25 | HHI.DCPOC ---
Discharge Care Plan Diagnosis: (1) Radiation cystitis (2) Hematuria Goals to Promote Your Health * To prevent worsening of your condition and complications * To maintain your health at the optimal level Directions to Meet Your Goals Take your medications as prescribed Follow your dietary instruction Follow activity as directed Keep your appointments as scheduled Take your immunizations and boosters as scheduled If your symptoms worsen call your PCP, if no PCP go to Urgent Care Center or Emergency Room Smoking is Dangerous to Your Health. Avoid second hand smoke Call the 24-hour hour crisis hotline for domestic abuse at Sandoval Flores Jul 07, 2017 13:25
[2017-07-07] MEDS ORDERED: CIPR250T52 PO (13:26)
--- NOTE | 2017-07-07 13:28 | HHI.DS ---
Discharge Summary Admission Date Jul 06, 2017 at 00:53 Discharge Date: Jul 07, 2017 Admitting Diagnosis Hematuria/hemorrhagic cystitis/bladder irrigation (1) Hematuria ICD Code: R31.9 - Hematuria, unspecified Status: Acute (2) Radiation cystitis ICD Code: N30.40 - Irradiation cystitis Status: Acute (3) Malignant neoplasm of prostate ICD Code: C61 - Malignant neoplasm of prostate Status: Acute Procedures Continuous bladder irrigation, Brief History - From Admission The patient is a 67-year-old male with a past medical history of prostate cancer who is presenting to the hospital with blood in his urine. He states that yesterday morning he developed difficulty with urinating. He then passed some blood clots. Later on in the day he passed very large blood clots. He called the doctor's office who recommended he come to the hospital. The patient says he gets blood clots every once in a while but usually it passes on its own. He says he is prone to blood clots secondary to radiation treatment he received on his prostate. The last blood clot he noticed was a few months ago. He has not been following up with a urologist regularly. He denies any recent trauma or infection. He did start taking cranberry supplements a few months ago. He denies a history of kidney stones. CBC/BMP: 07/07/17 0915 07/06/17 0750 Significant Findings Laboratory Tests Test 07/05/17 21:55 07/06/17 07:50 07/07/17 09:15 Red Blood Count 4.26 MIL/MM3 (4.50-5.90) 4.06 MIL/MM3 (4.50-5.90) 3.83 MIL/MM3 (4.50-5.90) Neutrophils (%) (Auto) 82.6 % (16.0-70.0) 77.1 % (16.0-70.0) Lymphocytes (%) (Auto) 7.8 % (9.0-44.0) Monocytes (%) (Auto) 8.8 % (0.0-8.0) 10.1 % (0.0-8.0) Lymphocytes # (Auto) 0.4 TH/MM3 (1.0-4.8) 0.5 TH/MM3 (1.0-4.8) Urine Color RED (YELLW/STRAW) Urine Protein 100 mg/dL (NEG-TRACE) Urine Glucose (UA) 100 mg/dL (NEG) Urine Occult Blood MOD (NEG) Urine RBC INNUM /hpf (0-3) Hematocrit 38.3 % (39.0-51.0) 36.5 % (39.0-51.0) Hemoglobin 12.3 GM/DL (13.0-17.0) Platelet Count 144 TH/MM3 (150-450) PE at Discharge GENERAL: Well-developed, well-nourished, in no acute distress. alert and orientated HEENT: Head is normocephalic without any lesions or masses noted. Facial features are symmetric. Eyes: Extraocular muscles are intact. Conjunctivae were clear. NECK: Supple without any masses. Trachea midline no deviation. No JVD, CARDIAC: Regular rhythm, regular rate. S1/S2 are heard. No murmurs gallops or rubs. LUNGS: Clear to auscultation bilaterally. No wheeze, rhonchi or rales. No use of accessory muscles on inspiration or expiration. ABDOMEN: Soft, nontender. Nondistended. Bowel sounds heard in all 4 quadrants. No organomegaly or masses. Negative rebound, negative guarding EXTREMITIES: No edema, pulses are equal bilaterally. No cyanosis or clubbing NEUROLOGY: Mood and affect appear appropriate. Cranial nerves II through XII grossly intact. Moving all extremities, speech is clear GENITOURINARY: Curiel in place with mildly pink hued yellow urine Hospital Course 67 year-old male with known history of prostate cancer who is followed in outpatient by Dr. Oseguera for urology. Patient noticed that he is starting to get some blood clots passing with his urine a few months ago. He has not followed up with his urologist regularly. However he had increased clots adherent so his primary medical doctor recommended him to come to the ER for evaluation. Patient had workup done and was requested admission to the hospital. Patient started with continuous bladder irrigation, urology consultation was requested. Urology evaluated the patient and indicated that the patient is improving. Recommending clamping irrigation this morning and if patient remains stable could discharge patient home with follow-up with his outpatient urologist. Patient does have history of daily alcohol use, he was admitted with [facility] protocol. Patient not requiring any treatment during his stay in the hospital. Patient has history of hypertension and his blood pressure remains stable during his stay in the hospital. Upon evaluating the patient he states that he is doing much better. Urine is much improved. Patient is very eager to be discharged and does agree with plan. He states that he has been discharged with Curiel before and has been managed outpatient with his urologist in the past. Patient is in agreement and is completely comfortable in discharging home with Curiel in place. Will plan discharge accordingly. Pt Condition on Discharge: Stable Discharge Disposition: Discharge Home Discharge Time: > 30 minutes Discharge Instructions DIET: Follow Instructions for: As Tolerated, No Restrictions Activities you can perform: Regular-No Restrictions Follow up Referrals: PCP Follow-up - 1 Week Urology - [address] Oseguera New Medications: Ciprofloxacin (Cipro) 250 Mg Tab 250 MG PO BID for Infection for 5 Days, #10 TAB 0 Refills Continued Medications: Amlodipine (Amlodipine) 5 Mg Tab 5 MG PO BID for Blood Pressure Management, #30 TAB 0 Refills Aspirin (Aspirin 81) 81 Mg Tabdr 81 MG PO DAILY, TAB 0 Refills Lisinopril (Lisinopril) 20 Mg Tab 20 MG PO DAILY, #30 TAB 0 Refills Meloxicam (Mobic) 15 Mg Tab 15 MG PO DAILY for Pain, #14 TAB 0 Refills Sandoval Flores Jul 07, 2017 13:28
[2017-07-07 14:02] VITALS: BP 138/86; PULSE 83; RESP 16; TEMP 97; O2SAT 95
== END 2017-07-07 14:54 | disposition home or self-care (01) ==
LOC: PHED 20:40 → PHEDA 07-06 00:53 → PH3A 07-06 02:37
PROVIDERS: ADMIT Hospitalist; ATTEND Hospitalist
DX: N30.41 Irradiation cystitis with hematuria (principal); C61 Malignant neoplasm of prostate; I10 Essential (primary) hypertension; F10.10 Alcohol abuse, uncomplicated; Z79.82 Long term (current) use of aspirin; Z92.3 Personal history of irradiation; Y84.2 Radiological procedure and radiotherapy as the cause of abnormal reaction of the patient, or of later complication, without mention of misadventure at the time of the procedure
CPT/HCPCS: 51702; 80048; 81001; 85025; 85027; 85610; 85730; 86850; 86900; 86901; 96360; 96361; 99285; G0378; J7030